=== PATIENT | male | born 1990 | race Caucasian/White ===

== ENCOUNTER → 2022-09-09 17:17 | Outpatient (CLI) | payer OTHER, SELFPAY ==
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
== END ==
PROVIDERS: Referring Provider Podiatrist; Visit Provider Podiatrist
DX: M25.371 Other instability, right ankle (principal); M25.571 Pain in right ankle and joints of right foot; M24.071 Loose body in right ankle
CPT/HCPCS: 73721

== ENCOUNTER 2022-12-02 16:16 | Emergency (ER) | payer OTHER, SELFPAY ==
[2022-12-02 16:38] VITALS: BP 150/78; PULSE 64; RESP 17; TEMP 36.7; O2SAT 97; BMI 31.2
[2022-12-02 17:01] LABS: Add Manual Diff / Slide Review NO; Basophils Absolute Auto 0 /uL (0-100); Basophils Percent Auto 0.7 % (0-2); Eosinophils Absolute Auto 500 /uL (0-450); Eosinophils Percent Auto 8.3 % (2-4); Hematocrit 46.6 % (41-53); Hemoglobin 16.2 g/dL (13.5-17.5); Lymphocytes Absolute Auto 2300 /uL (1100-4500); Lymphocytes Percent Auto 36.6 % (25-40); Mean Corpuscular HGB Conc 34.7 % (30-36); Mean Corpuscular Hemoglobin 30.4 PG (26-34); Mean Corpuscular Volume 87.4 fL (80-100); Monocytes Absolute Auto 400 /uL (0-900); Monocytes Percent Auto 6.6 % (3-14); Neutrophils Absolute Auto 3000 /uL (1500-7000); Neutrophils Percent Auto 47.8 % (50-75); Platelet Count 294 X10^3/uL (150-400); Red Blood Cell Count 5.33 X10^6/uL (4.5-5.9); Red Cell Distribution Width 13.4 % (11.6-14.8); White Blood Cell Count 6.3 X10^3/uL (4.5-11.0)
[2022-12-02 17:21] LABS: Alanine Aminotransferase 46 IU/L (<50); Albumin 4.9 g/dL (3.5-5.0); Albumin Globulin Ratio 1.5 (1.0-2.8); Alkaline Phosphatase 67 U/L (38-126); Aspartate Aminotransferase 30 IU/L (17-59); BUN Creatinine Ratio 13.5 (6-22); Bilirubin Total 0.6 mg/dL (0.2-1.3); Blood Urea Nitrogen 15 mg/dL (9-20); Calcium 9.6 mg/dL (8.4-10.2); Carbon Dioxide 30 mmol/L (22-32); Chloride 100 mmol/L (98-107); Estimated Glomerular Filt Rate > 60 mL/min (>60); Globulin 3.3 g/dL (1.7-4.1); Glucose 92 mg/dL (70-100); HEMOLYSIS < 15 (0-50); Lipase 139 U/L (23-300); Potassium 3.9 mmol/L (3.4-5.1); Sodium 141 mmol/L (137-145); Total Protein 8.2 g/dL (6.3-8.2)
--- NOTE | 2022-12-02 18:45 | DI.CT.S_ITS ---
PROCEDURE: CT ABDOMEN PELVIS W CON INDICATIONS: rule out appendectomy TECHNIQUE: After the administration of IV contrast, axial sections were acquired from the lung bases to the pubic symphysis. Coronal and sagittal reformats were performed. For radiation dose reduction, the following was used: automated exposure control, adjustment of mA and/or kV according to patient size. COMPARISON: None. FINDINGS: Image quality: Excellent. Lung bases: Unremarkable. Heart: No significant findings. ABDOMEN: Liver: Mild steatosis. Gallbladder: Unremarkable. Biliary ducts: Unremarkable. Pancreas: Unremarkable. Spleen: Unremarkable. Adrenal Glands: Unremarkable. Kidneys and Ureters: Unremarkable. Stomach and Bowel: Stomach, small bowel loops, and colon are unremarkable. The appendix is not definitively identified. No right lower quadrant inflammatory change. Prominent colonic stool is present without obstruction. Peritoneum: No abnormal intraperitoneal fluid. No free air. Ventral Wall: Trace fat containing ventral hernia. Abdominal Nodes: No retroperitoneal or mesenteric adenopathy by size criteria. Vessels: Aorta and inferior vena cava are normal in size. PELVIS: Pelvic Organs: Unremarkable. Bladder: Unremarkable. Pelvic Nodes: No enlarged lymph nodes. Miscellaneous: No inguinal hernias are seen. Bones: Unremarkable. IMPRESSION: The appendix is not definitively identified. No right lower quadrant inflammatory change. Dictated by: Odilia Kang M.D. on 12/02/2022 at 19:56 Approved by: Odilia Kang M.D. on 12/02/2022 at 20:01
--- NOTE | 2022-12-02 19:32 | ED_ITS ---
HPI - General Adult General Chief complaint: Abdominal Pain Stated complaint: lower abd pain Time Seen by Provider: 12/02/22 19:31 Source: patient Mode of arrival: Ambulatory History of Present Illness HPI narrative: 32-year-old gentleman no significant medical history presents complaining of right flank and right lower quadrant pain. Notes that on November 25 he had severe diarrhea without fever or blood. He took an Imodium that night that helped significantly another Imodium in the morning and notes that his 1st solid stool was yesterday. In the interval he noted some right flank discomfort and that did improve with a bowel movement. Notes another normal formed bowel movement this morning but is still having some right lower quadrant tenderness. Was seen in urgent care 4 days ago on was told that his urine was unremarkable. He is had no chest pain, cough, palpitations, fevers. He is never had pain like this before. He is urinating without difficulty, pain or urgency. He is noticed no acute hematuria. Related Data Home Medications Medication Instructions Recorded Confirmed No Known Home Medications 12/02/22 12/02/22 Allergies Allergy/AdvReac Type Severity Reaction Status Date / Time No Known Drug Allergies Allergy Verified 12/02/22 16:41 Review of Systems Review of Systems Narrative: Remainder of complete review of systems is otherwise unremarkable except for that included in the HPI. Patient History Social History Smoking Status: Never smoker Smoking Status: Never smoker alcohol intake frequency: 0-2 drinks per day Substance Use Type: does not use Exam Initial Vital Signs Initial Vital Signs: Vital Signs Temperature 98.1 F 12/02/22 16:38 Pulse Rate 64 12/02/22 16:38 Respiratory Rate 17 12/02/22 16:38 Blood Pressure 150/78 H 12/02/22 16:38 Pulse Oximetry 97 12/02/22 16:38 Oxygen Delivery Method 12/02/22 16:38 General: Healthy appearing, in no acute distress. Able to give a complete and coherent history. Well-nourished well-developed HEENT: Moist mucous membranes, normal sclera with reactive pupils, Respiratory: Lungs are clear to auscultation, no wheezing no rales no rhonchi. Full and symmetrical air movement Cardiac: Regular rate and rhythm no murmurs no bruits Abdomen: Soft, very minimal tenderness in the right lower quadrant with deep palpation, good bowel tones, no flank pain Skin: Warm and dry, no rashes Neurologic: Grossly neurologically intact with no obvious asymmetries or abnormalities Extremities: No trauma, well perfused Psych: Cooperative, appropriate insight and affect Course Orders Ordered: ED Orders 12/02/22 16:35 Complete Blood Count AUTO DIFF Stat Comprehensive Metabolic Panel Stat Lipase Stat 12/02/22 18:45 CT abdomen pelvis w con Stat Vital Signs Vital signs: Vital Signs - 8 hr 12/02/22 16:38 12/02/22 21:06 Temperature 98.1 F Pulse Rate 64 56 L Respiratory Rate 17 98 H Blood Pressure 150/78 H 133/83 Pulse Oximetry 97 Oxygen Delivery Method Room Air Medical Decision Making Lab Data 12/02/22 16:35 12/02/22 16:35 Labs: Lab Results 12/02/22 12/02/22 Range/Units 16:35 16:35 WBC 6.3 (4.5-11.0) X10^3/uL RBC 5.33 (4.5-5.9) X10^6/uL Hgb 16.2 (13.5-17.5) g/dL Hct 46.6 (41-53) % MCV 87.4 (80-100) fL MCH 30.4 (26-34) PG MCHC 34.7 (30-36) % RDW 13.4 (11.6-14.8) % Plt Count 294 (150-400) X10^3/uL Neut % (Auto) 47.8 L (50-75) % Lymph % (Auto) 36.6 (25-40) % [place] % (Auto) 6.6 (3-14) % Eos % (Auto) 8.3 H (2-4) % Baso % (Auto) 0.7 (0-2) % Neut # (Auto) 3000 (5902-4025) /uL Lymph # (Auto) 2300 (1412-9332) /uL [place] # (Auto) 400 (0-900) /uL Eos # (Auto) 500 H (0-450) /uL Baso # (Auto) 0 (0-100) /uL Sodium 141 (137-145) mmol/L Potassium 3.9 (3.4-5.1) mmol/L Chloride 100 (98-107) mmol/L Carbon Dioxide 30 (22-32) mmol/L BUN 15 (9-20) mg/dL Creatinine 1.11 (0.66-1.25) mg/dL Estimated GFR > 60 (>60) mL/min BUN/Creatinine Ratio 13.5 (6-22) Glucose 92 (70-100) mg/dL Calcium 9.6 (8.4-10.2) mg/dL Total Bilirubin 0.6 (0.2-1.3) mg/dL AST 30 (17-59) IU/L ALT 46 (<50) IU/L Alkaline Phosphatase 67 (38-126) U/L Total Protein 8.2 (6.3-8.2) g/dL Albumin 4.9 (3.5-5.0) g/dL Globulin 3.3 (1.7-4.1) g/dL Albumin/Globulin Ratio 1.5 (1.0-2.8) Lipase 139 (23-300) U/L Urine Dip Bedside Urine Glucose Negative Bedside Urine Bilirubin - Negative Bedside Urine Ketone - Negative Urine Specific [place] 1.005 Bedside Urine Occult Blood - Negative Bedside Urine pH 7.0 Bedside Urine Protein - Negative Bedside Urine Urobilinogen - Negative Bedside Urine Nitrite - Negative Bedside Urine Leukocytes - Negative Esterase Point of care testing: Urine Dip Bedside Urine Glucose Negative Bedside Urine Bilirubin - Negative Bedside Urine Ketone - Negative Urine Specific [place] 1.005 Bedside Urine Occult Blood - Negative Bedside Urine pH 7.0 Bedside Urine Protein - Negative Bedside Urine Urobilinogen - Negative Bedside Urine Nitrite - Negative Bedside Urine Leukocytes - Negative Esterase Imaging Data CT scan - abdomen/pelvis: Radiologist's Impression: FINDINGS:? Image quality:? Excellent.? ? Lung bases:? Unremarkable.? ? Heart:? No significant findings. ? ? ABDOMEN: Liver:? Mild steatosis. Gallbladder:? Unremarkable.? ? Biliary ducts:? Unremarkable.? ? Pancreas:? Unremarkable.? ? Spleen:? Unremarkable.? ? Adrenal Glands:? Unremarkable.? ? Kidneys and Ureters:? Unremarkable.? ? ? Stomach and Bowel:? Stomach, small bowel loops, and colon are unremarkable.? The appendix is not definitively identified.? No right lower quadrant inflammatory change.? Prominent colonic stool is present without obstruction. Peritoneum:? No abnormal intraperitoneal fluid.? No free air.? ? Ventral Wall: ? Trace fat containing ventral hernia. Abdominal Nodes:? No retroperitoneal or mesenteric adenopathy by size criteria.? Vessels:? Aorta and inferior vena cava are normal in size.? ? PELVIS: Pelvic Organs:? Unremarkable.? ? Bladder:? Unremarkable.? ? Pelvic Nodes: No enlarged lymph nodes.? Miscellaneous: No inguinal hernias are seen. ? ? ? Bones:? Unremarkable.? IMPRESSION:? ? The appendix is not definitively identified.? No right lower quadrant inflammatory change. ? ? Dictated by: Odilia Kang M.D. on 12/02/2022 at 19:56 ? ? MDM Narrative Medical decision making narrative: CC: Right flank and lower quadrant pain waxing and waning over the last week. This is a new, undiagnosed problem with potential for life-threatening abnormality Complicating co-morbidities: None Corroborating data: Data collected from: patient Differential considered: Kidney stone, acute appendicitis, pyelonephritis, bowel obstruction, constipation, intra-abdominal tumor Exam documented above, pertinent findings include: Minor right lower quadrant tenderness with no pain behaviors at all, able to easily sit up and jump off the bed without pain. Lab Test results independently reviewed as above. Pertinent findings: CBC is unremarkable Chemistries are reassuring Urine has no evidence of hematuria or urinary tract infection Imaging studies independently reviewed: CT scan of the abdomen shows no acute findings specifically no obstruction, hydronephrosis, pyelonephritis, appendicitis. There is a moderate amount of stool in the right side and this may be the source his pain Re-evaluations and discussion: On re-evaluation, pain is somewhat improved. Reviewed labs and CT scan. At this point there is no evidence that additional workup is required and no need for hospitalization. Did suggest that he have a high-fiber dinner and see if getting his bowels back to normal after the 2 doses of Imodium last week resolve the abdominal pain. Questions are answered and he is safe for discharge home Disposition: see below, along with detailed discharge instructions that have been reviewed with patient as well as indications for ED re-evaluation and additional outpatient follow up Discharge Plan Departure Patient Disposition: Home Clinical Impression: Constipation Abdominal pain Qualifiers: Abdominal location: right lower quadrant Qualified Code(s): R10.31 - Right lower quadrant pain Instructions: DI for Constipation Activity Restrictions/Additional Instructions: Thank you for coming in today Your workup was actually quite reassuring. There is no evidence of acute infection, obvious abnormalities to the bowel wall or bowel obstructions. You do not have appendicitis and you do not have a kidney infection or diverticulitis. On the CT scan there is a moderate amount of stool still just on the right side of your colon and that may be part of the pain that you are experiencing. I would suggest that you continue with the laxatives and stool softeners that you have been taking until you have another 1-2 bowel movements and are completely pain-free. I think this is also very good example of how sensitive you are to Imodium. In the future, it may be better to avoid this and deal with the diarrhea. If you find that you are getting worse or develop any new symptoms, please feel free to return to the emergency department for further evaluation. Prescriptions: No Action No Known Home Medications Referrals: ProviderAlondra [Primary Care Provider] - Stand Alone Forms: Patient Portal/API
[2022-12-02 21:06] VITALS: BP 133/83; PULSE 56; RESP 98
== END 2022-12-02 21:26 | disposition home or self-care (01) ==
PROVIDERS: Emergency Medicine; Emergency Provider Emergency Medicine
DX: R10.31 Right lower quadrant pain (principal); K59.00 Constipation, unspecified
CPT/HCPCS: 36415; 74177; 80053; 81003; 83690; 85025; 99283; 99284; Q9967

== ENCOUNTER 2023-06-06 20:11 | Emergency (ER) | payer OTHER, SELFPAY ==
[2023-06-06 20:14] VITALS: BP 129/78; PULSE 65; RESP 16; TEMP 36.2; O2SAT 96; BMI 66.7
[2023-06-06 22:05] VITALS: BP 137/90; PULSE 66; RESP 16; O2SAT 97
--- NOTE | 2023-06-06 22:47 | ED.BACK ---
HPI - Back Pain/Injury General Chief Complaint: Back Pain/Injury Stated Complaint: Side pain, Kidney sensitivity Time Seen by Provider: 06/06/23 22:35 Source: patient Mode of arrival: Ambulatory Limitations: no limitations History of Present Illness HPI Narrative: 33-year-old male with complaint of initially left lower thoracic pain and now bilateral lower back pain. Patient states initially pain started while lifting some heavy things. Patient states pain started there and then has since radiated down lower both sides. Feels very tight notes when he slumps he is more uncomfortable than when he sits up straight. He states little bit increased pain with movement but not completely. Has not been radiating to the front. He denies fevers no chills. No nausea or vomiting, no pain radiating down his legs. No diarrhea, no constipation, no black or bloody stools. He states he is stooling regularly. No dysuria, urgency or frequency. No testicular pain. Patient denies any other symptoms. He took ibuprofen 400 mg today which was helpful. Patient has had some back issues in the past but typically higher up. Patient states he is had prior ankle surgery. No known drug allergies other than Imodium makes him very constipated. No tobacco, occasional alcohol, no illicit. Related Data Home Medications Medication Instructions Recorded Confirmed No Known Home Medications 12/02/22 12/02/22 Allergies Allergy/AdvReac Type Severity Reaction Status Date / Time No Known Drug Allergies Allergy Verified 12/02/22 16:41 Review of Systems Review of Systems ROS Unobtainable: All systems reviewed & are unremarkable except as noted in HPI and below Patient History Social History Smoking Status: Never smoker Smoking Status: Never smoker alcohol intake frequency: 0-2 drinks per day Substance Use Type: does not use Exam Narrative Exam Narrative: GENERAL: Alert and oriented x three, male in mild distress. HEENT: Head normocephalic, atraumatic, EOMI, pupils reactive, face symmetric, moist mucous membranes NECK: Supple, full range of motion CARDIOVASCULAR: Regular rate and rhythm without murmurs, rubs or gallops. RESPIRATORY: Breath sounds equal bilaterally, no wheezes rales or rhonchi. ABDOMEN: Soft, nontender. Normoactive bowel sounds all 4 quadrants. No guarding or rebound, rigidity, no mass : No CVA tenderness BACK: No cervical, thoracic or lumbar vertebral point tenderness. Patient does have some mild tightness in lower lumbar bilaterally. Patient has normal range of motion. Patient's gait is normal. Muscle strength is 5/5 in lower extremities, DTRs are 2/4 and lower extremities. Sensation is intact in the lower extremities. EXTREMITIES: Normal range of motion, no clubbing or edema. Neurovascularly intact NEUROLOGICAL: Cranial nerves II through XII grossly intact. Moving all extremities SKIN: Warm, dry, no petechiae, no rashes or lesions. Initial Vital Signs Initial Vital Signs: Vital Signs Temperature 97.1 F L 06/06/23 20:14 Pulse Rate 65 06/06/23 20:14 Respiratory Rate 16 06/06/23 20:14 Blood Pressure 129/78 06/06/23 20:14 Pulse Oximetry 96 06/06/23 20:14 Oxygen Delivery Method Room Air 06/06/23 20:14 Course Vital Signs Vital signs: Vital Signs - 8 hr 06/06/23 20:14 06/06/23 22:05 Temperature 97.1 F L Pulse Rate 65 66 Respiratory Rate 16 16 Blood Pressure 129/78 137/90 Pulse Oximetry 96 97 Oxygen Delivery Method Room Air Room Air MDM - Back Pain/Injury Lab Data Labs: Urine Dip Bedside Urine Glucose Negative Bedside Urine Bilirubin - Negative Bedside Urine Ketone - Negative Urine Specific [place] 1.025 Bedside Urine Occult Blood - Negative Bedside Urine pH 6.0 Bedside Urine Protein - Negative Bedside Urine Urobilinogen - Negative Bedside Urine Nitrite - Negative Bedside Urine Leukocytes - Negative Esterase MDM Narrative Medical decision making narrative: This is a 33-year-old male with complaint of lower thoracic and now bilateral lower lumbar discomfort. Movement does seem to make it worse particularly slumping. No trauma but was lifting heavy things when symptoms 1st started and has been slowly worsening. Does respond to ibuprofen. He denies any other symptoms. No other red flag symptoms currently. Discussed with patient continue ibuprofen and Tylenol as needed, return precautions. Discharge Plan Departure Patient Disposition: Home Clinical Impression: Lumbar back pain Instructions: DI for Low Back Pain Activity Restrictions/Additional Instructions: Follow up with primary care if symptoms are not improving over the next week. You can take ibuprofen up to 600 mg every 6 hours and/or Tylenol up to a 1000 mg every 6 hours. Please return for rapidly worsening symptoms, new numbness, tingling or weakness, loss of bowel or bladder control, new or worsening abdominal pain, fevers, vomiting, black or bloody stools or other new or concerning changes. Prescriptions: No Action No Known Home Medications Referrals: ProviderAlondra [Primary Care Provider] - Stand Alone Forms: Patient Portal/API
== END 2023-06-06 23:05 | disposition home or self-care (01) ==
PROVIDERS: Emergency Provider Emergency Medicine
DX: M54.50 Low back pain, unspecified (principal)
CPT/HCPCS: 81003; 99282